=== PATIENT | female | born 1955 | race Caucasian/White ===

== ENCOUNTER 2019-05-24 16:47 | Emergency (ER) | payer OTHER ==
[~2019-05-24] VITALS: Ht 157.5 cm; Wt 83.9 kg
[~2019-05-24 16:47] MED LIST: EPIPEN0.3 MG/0.3 IM; LISINOPRIL10 MG; LOSARTAN POTASS50 MG PO; PREDNISONE50 MG PO
[2019-05-24] MEDS ORDERED: GLUCOSAMINE1000 MG PO (17:03)
[2019-05-24] MEDS ORDERED: NORCO 5-325 TA1 EAC1 PO (18:00)
[2019-05-24] MEDS ORDERED: IBUPROFEN 800800 M1 PO (18:00)
[2019-05-24 18:22] VITALS: BP 135/70
== END 2019-05-24 18:22 | disposition home or self-care (01) ==
LOC: M.ERS 16:47
DX: S52.122A Displaced fracture of head of left radius, initial encounter for closed fracture (principal); S62.002A Unspecified fracture of navicular [scaphoid] bone of left wrist, initial encounter for closed fracture; I10 Essential (primary) hypertension; W18.39XA Other fall on same level, initial encounter; Y93.89 Activity, other specified; Y92.89 Other specified places as the place of occurrence of the external cause; Y99.8 Other external cause status

== ENCOUNTER → 2020-02-06 | Outpatient (CLI) | payer OTHER ==
[~2020-02-06] MED LIST changes: +GLUCOSAMINE1000 MG PO; +IBUPROFEN 800800 M1 PO; +NORCO 5-325 TA1 EAC1 PO
== END ==
LOC: M.MRI 02-02 13:30
PROVIDERS: ATTEND Family Medicine
DX: M19.012 Primary osteoarthritis, left shoulder (principal)